=== PATIENT | male | born 1995 | race Caucasian/White ===

== ENCOUNTER 2017-04-09 15:46 | Emergency (ER) | payer MEDICAID ==
[~2017-04-09] VITALS: Ht 185.4 cm; Wt 62.0 kg
[2017-04-09 15:48] VITALS: BP 138/89; PULSE 88; RESP 24; TEMP 97.9; O2SAT 98
--- NOTE | 2017-04-09 16:00 | PD ---
Physical Exam Date Seen by Provider: Apr 09, 2017 Time Seen by Provider: 15:56 Data Data Last Documented VS Vital Signs Date Time Temp Pulse Resp B/P Pulse Ox O2 Delivery O2 Flow Rate FiO2 04/09/17 15:48 97.9 88 24 138/89 98 Room Air [facility] Supervised Visit with ELADIO: No Narrative Course 21 YO M with complaint of chest tightness, lightheadedness, paraesthesias x ~20 hours. Reports PMH of asthma. Vitals reviewed. Awaiting bed placement. Danielle Morfin Apr 09, 2017 16:00
--- NOTE | 2017-04-09 16:16 | PD ---
HPI Chief Complaint: Dizziness Time Seen by Provider: 16:09 Travel History International Travel<30 days: No Contact w/Intl Traveler<30days: No Traveled to known affect area: No History of Present Illness HPI 21-year-old male came to the emergency room with history of shortness of breath , dizziness, left arm numbness and left leg tingling and numbness. Patient seemed extremely anxious. He says upon asking that last night and the night before he did 2 g of cocaine with his friend, drank alcohol, smoked a lot of cigarettes and marijuana and also took pain pills. After doing this for 2 nights last night he was unable to sleep and then he went on the Internet and searched his symptoms. The medical possibilities scared him a lot which made him come to the emergency room. Vital signs otherwise stable on the monitor. He otherwise claims to be a healthy person. [facility] Past Medical History Narrative Medical List of his past medical, surgical, social and family history was reviewed from the nursing note. Asthma: Yes Medical other: Yes (mrsa and staph) Respiratory: Yes (ASTHMA) Social History Alcohol Use: Yes Tobacco Use: Yes Substance Use: Yes (cocaine, snorted and smoked) Allergies-Medications (Allergen,Severity, Reaction): Coded Allergies: No Known Allergies (Unverified , 04/09/17) Comments No known drug allergies. Reported Meds & Prescriptions Reported Meds & Active Scripts Active No Active Prescriptions or Reported Medications Narrative Medication List of his home medications reviewed from the nursing note. Review of Systems Except as stated in HPI: all other systems reviewed are Neg Physical Exam Narrative GENERAL: Awake, alert, anxious, tearful SKIN: Focused skin assessment warm/dry. HEAD: Atraumatic. Normocephalic. EYES: Pupils equal and round. No scleral icterus. No injection or drainage. ENT: No nasal bleeding or discharge. Mucous membranes pink and moist. NECK: Trachea midline. No JVD. CARDIOVASCULAR: Regular rate and rhythm. No murmur appreciated. RESPIRATORY: No accessory muscle use. Clear to auscultation. Breath sounds equal bilaterally. GASTROINTESTINAL: Abdomen soft, non-tender, nondistended. Hepatic and splenic margins not palpable. MUSCULOSKELETAL: No obvious deformities. No clubbing. No cyanosis. No edema. NEUROLOGICAL: Awake and alert. No obvious cranial nerve deficits. Motor grossly within normal limits. Normal speech. PSYCHIATRIC: Appropriate mood and affect; insight and judgment normal. Data Data Last Documented VS Vital Signs Date Time Temp Pulse Resp B/P Pulse Ox O2 Delivery O2 Flow Rate FiO2 04/09/17 18:15 74 18 129/75 98 Room Air 04/09/17 15:48 97.9 Orders Electrocardiogram (04/09/17 16:18) Basic Metabolic Panel (Bmp) (04/09/17 16:18) Ckmb (Isoenzyme) Profile (04/09/17 16:18) Complete Blood Count With Diff (04/09/17 16:18) Magnesium (Mg) (04/09/17 16:18) Prothrombin Time / Inr (Pt) (04/09/17 16:18) Act Partial Throm Time (Ptt) (04/09/17 16:18) Troponin I (04/09/17 16:18) Chest, Single Ap (04/09/17 16:18) Ecg Monitoring (04/09/17 16:18) Bilateral Bp Monitoring (04/09/17 16:18) Iv Access Insert/Monitor (04/09/17 16:18) Oximetry (04/09/17 16:18) Oxygen Administration (04/09/17 16:18) Sodium Chloride 0.9% Flush (Ns Flush) (04/09/17 16:30) Alprazolam (Xanax) (04/09/17 16:30) Lorazepam (Ativan) (04/09/17 16:30) CKMB (04/09/17 16:34) CKMB% (04/09/17 16:34) Labs Laboratory Tests Test 04/09/17 16:34 White Blood Count 6.8 TH/MM3 Red Blood Count 5.05 MIL/MM3 Hemoglobin 15.6 GM/DL Hematocrit 45.0 % Mean Corpuscular Volume 89.2 FL Mean Corpuscular Hemoglobin 30.9 PG Mean Corpuscular Hemoglobin 34.6 % Concent Red Cell Distribution Width 13.0 % Platelet Count 249 TH/MM3 Mean Platelet Volume 8.0 FL Neutrophils (%) (Auto) 72.1 % Lymphocytes (%) (Auto) 19.6 % Monocytes (%) (Auto) 5.2 % Eosinophils (%) (Auto) 2.1 % Basophils (%) (Auto) 1.0 % Neutrophils # (Auto) 4.9 TH/MM3 Lymphocytes # (Auto) 1.3 TH/MM3 Monocytes # (Auto) 0.4 TH/MM3 Eosinophils # (Auto) 0.1 TH/MM3 Basophils # (Auto) 0.1 TH/MM3 CBC Comment DIFF FINAL Differential Comment Prothrombin Time 11.1 SEC Prothromb Time International 1.0 RATIO Ratio Activated Partial 29.4 SEC Thromboplast Time Sodium Level 143 MEQ/L Potassium Level 3.4 MEQ/L Chloride Level 108 MEQ/L Carbon Dioxide Level 25.2 MEQ/L Anion Gap 10 MEQ/L Blood Urea Nitrogen 11 MG/DL Creatinine 1.16 MG/DL Estimat Glomerular Filtration 79 ML/MIN Rate Random Glucose 82 MG/DL Calcium Level 9.4 MG/DL Magnesium Level 2.5 MG/DL Total Creatine Kinase 263 U/L Creatine Kinase MB 4.0 NG/ML Troponin I LESS THAN 0.02 NG/ML MDM Medical Decision Making Medical Screen Exam Complete: Yes Emergency Medical Condition: Yes Medical Record Reviewed: Yes Interpretation(s) Twelve-lead EKG was reviewed by me. Normal sinus rhythm, normal axis, nonspecific ST-T wave changes. Heart rate of 63 bpm. Differential Diagnosis Cocaine induced chest pain, polysubstance abuse, anxiety Narrative Course 4:47 PM patient has been given 1 mg of Ativan to counter the effect of cocaine and also to subside his anxiety. I have ordered labs and x-ray. Awaiting for the test results. Case most probably will be signed over to the oncoming ER physician. Procedures EKG Prior to Arrival: No Scripts No Active Prescriptions or Reported Meds Maxim Dasilva MD Apr 09, 2017 16:16
[2017-04-09] MEDS ORDERED: SODIUM CHLORIDE 0.9% FLUSH 10 ML FLUSH IVF PRN (16:30)
[2017-04-09] MEDS ORDERED: LORazepam 1 MG TAB PO ONE (16:30)
[2017-04-09] MEDS ORDERED: ALPRAZolam 0.5 MG TAB PO ONE (16:30)
[2017-04-09 16:41] VITALS: O2SAT 100
[2017-04-09 16:45] VITALS: BP 113/68; PULSE 60; RESP 18; O2SAT 100
[2017-04-09 16:46] LABS: AUTOMATED NEUTROPHIL # 4.9 TH/MM3 (1.8-7.7); BASOPHIL # 0.1 TH/MM3 (0-0.2); EOSINOPHIL # 0.1 TH/MM3 (0-0.4); EOSINOPHIL % 2.1 % (0.0-4.0); HEMO FLAGS DIFF FINAL; LYMPH % 19.6 % (9.0-44.0); LYMPHOCYTE # 1.3 TH/MM3 (1.0-4.8); MEAN CELL VOLUME 89.2 FL (80.0-100.0); MEAN CORPUSCULAR HEMOGLOBIN 30.9 PG (27.0-34.0); MEAN CORPUSCULAR HGB CONC 34.6 % (32.0-36.0); MONO % 5.2 % (0.0-8.0); NEUT % 72.1 % (16.0-70.0); PLATELET COUNT 249 TH/MM3 (150-450); RED BLOOD COUNT 5.05 MIL/MM3 (4.50-5.90); WHITE BLOOD COUNT 6.8 TH/MM3 (4.0-11.0)
[2017-04-09 17:05] LABS: APTT (PATIENT) 29.4 SEC (24.3-30.1); PROTHROMBIN TIME - PATIENT 11.1 SEC (9.8-11.6)
[2017-04-09 17:09] LABS: ANION GAP 10 MEQ/L (5-15); BICARBONATE 25.2 MEQ/L (21.0-32.0); BLOOD UREA NITROGEN 11 MG/DL (7-18); CHLORIDE 108 MEQ/L (98-107); GLOMERULAR FILTRATION RATE 79 ML/MIN (>89); MAGNESIUM 2.5 MG/DL (1.5-2.5); POTASSIUM 3.4 MEQ/L (3.5-5.1); SODIUM (NA) 143 MEQ/L (136-145)
[2017-04-09 17:14] LABS: CREATINE KINASE 263 U/L (39-308)
--- NOTE | 2017-04-09 17:38 | RADRPT ---
EXAM DATE/TIME: 04/09/2017 16:17 [place] COMPARISON: No previous studies available for comparison. INDICATIONS : Chest pain, chest tightness, and shortness of breath. MEDICAL HISTORY : None. SURGICAL HISTORY : None. ENCOUNTER: Initial ACUITY: 1 day PAIN SCORE: 4/10 LOCATION: Right lower chest FINDINGS: A single view of the chest demonstrates the lungs to be symmetrically aerated without evidence of mas s, infiltrate or effusion. No evidence of pneumothorax. The cardiomediastinal contours are unremark able. Osseous structures are intact. CONCLUSION: The lungs are clear. Calderon Flynn MD on April 09, 2017 at 17:36 Board Certified Radiologist. This report was verified electronically.
--- NOTE | 2017-04-09 17:44 | PD ---
Data Data Last Documented VS Vital Signs Date Time Temp Pulse Resp B/P Pulse Ox O2 Delivery O2 Flow Rate FiO2 04/09/17 16:45 60 18 113/68 100 Room Air 04/09/17 15:48 97.9 Orders Electrocardiogram (04/09/17 16:18) Basic Metabolic Panel (Bmp) (04/09/17 16:18) Ckmb (Isoenzyme) Profile (04/09/17 16:18) Complete Blood Count With Diff (04/09/17 16:18) Magnesium (Mg) (04/09/17 16:18) Prothrombin Time / Inr (Pt) (04/09/17 16:18) Act Partial Throm Time (Ptt) (04/09/17 16:18) Troponin I (04/09/17 16:18) Chest, Single Ap (04/09/17 16:18) Ecg Monitoring (04/09/17 16:18) Bilateral Bp Monitoring (04/09/17 16:18) Iv Access Insert/Monitor (04/09/17 16:18) Oximetry (04/09/17 16:18) Oxygen Administration (04/09/17 16:18) Sodium Chloride 0.9% Flush (Ns Flush) (04/09/17 16:30) Alprazolam (Xanax) (04/09/17 16:30) Lorazepam (Ativan) (04/09/17 16:30) CKMB (04/09/17 16:34) CKMB% (04/09/17 16:34) Labs Laboratory Tests Test 04/09/17 16:34 White Blood Count 6.8 TH/MM3 Red Blood Count 5.05 MIL/MM3 Hemoglobin 15.6 GM/DL Hematocrit 45.0 % Mean Corpuscular Volume 89.2 FL Mean Corpuscular Hemoglobin 30.9 PG Mean Corpuscular Hemoglobin 34.6 % Concent Red Cell Distribution Width 13.0 % Platelet Count 249 TH/MM3 Mean Platelet Volume 8.0 FL Neutrophils (%) (Auto) 72.1 % Lymphocytes (%) (Auto) 19.6 % Monocytes (%) (Auto) 5.2 % Eosinophils (%) (Auto) 2.1 % Basophils (%) (Auto) 1.0 % Neutrophils # (Auto) 4.9 TH/MM3 Lymphocytes # (Auto) 1.3 TH/MM3 Monocytes # (Auto) 0.4 TH/MM3 Eosinophils # (Auto) 0.1 TH/MM3 Basophils # (Auto) 0.1 TH/MM3 CBC Comment DIFF FINAL Differential Comment Prothrombin Time 11.1 SEC Prothromb Time International 1.0 RATIO Ratio Activated Partial 29.4 SEC Thromboplast Time Sodium Level 143 MEQ/L Potassium Level 3.4 MEQ/L Chloride Level 108 MEQ/L Carbon Dioxide Level 25.2 MEQ/L Anion Gap 10 MEQ/L Blood Urea Nitrogen 11 MG/DL Creatinine 1.16 MG/DL Estimat Glomerular Filtration 79 ML/MIN Rate Random Glucose 82 MG/DL Calcium Level 9.4 MG/DL Magnesium Level 2.5 MG/DL Total Creatine Kinase 263 U/L Creatine Kinase MB 4.0 NG/ML Troponin I LESS THAN 0.02 NG/ML MDM Supervised Visit with ELADIO: No Narrative Course I took over care of this patient from Dr. Dasilva. He is a 21-year-old who presents to the emergency department with multiple symptoms including shortness of breath, palpitations and tingling in his extremities. He evidently used multiple substances last evening. Labs are all reassuring and his benign physical exam. He feels much better. I think the patient can be discharged home and I suspect his symptoms are in the setting of substance abuse. Diagnosis Primary Impression: Substance abuse Patient Instructions: General Instructions Additional Instruction: Follow up with Gregg Garcia in regards to psychiatric or substance related issues at: [address] [place], [place] [id number] Med/Other Pt SpecificInfo: No Change to Meds Scripts No Active Prescriptions or Reported Meds Disposition: 01 DISCHARGE HOME Condition: Stable Lawanda Waldron MD Apr 09, 2017 17:44
[2017-04-09 18:15] VITALS: BP 129/75; PULSE 74; RESP 18; O2SAT 98
--- NOTE | 2017-04-10 14:12 | EKG ---
Date Performed: 04/09/2017 Time Performed: 16:38:37 PTAGE: 21 years EKG: Sinus rhythm WITH SHORT MO INTERVAL POSSIBLE RIGHT VENTRICULAR CONDUCTION DELAY BORDERLINE ECG NO PREVIOUS TRACING DOCTOR: Rafal Villarreal Interpretating Date/Time 04/10/2017 14:10:38
== END 2017-04-09 18:30 | disposition home or self-care (01) ==
LOC: NEPD 15:46
DX: F19.19 Other psychoactive substance abuse with unspecified psychoactive substance-induced disorder (principal); R94.31 Abnormal electrocardiogram [ECG] [EKG]; F12.90 Cannabis use, unspecified, uncomplicated; F14.90 Cocaine use, unspecified, uncomplicated; Z72.0 Tobacco use
CPT/HCPCS: 71010; 80048; 82550; 82552; 83735; 84484; 85025; 85610; 85730; 93005; 99285